=== PATIENT | male | born 1975 | race American Indian/Alaskan Native ===

== ENCOUNTER 2019-01-24 15:22 | Emergency (ER) | payer OTHER ==
--- NOTE | 2019-01-24 15:42 | Emergency Department Report ---
Blank Doc - Documentation Documentation: This is a 43-year-old male that presents with right mandibular swelling with p ain. This initial assessment/diagnostic orders/clinical plan/treatment(s) is/are subject to change based on patient's health status, clinical progression and re- assessment by fellow clinical providers in the ED. Further treatment and workup at subsequent clinical providers discretion. Patient/guardians urged not to elope from the ED as their condition may be serious if not clinically assessed a nd managed. Initial orders include: 1- Patient sent to [facility] for further evaluation and treatment 2- labs 3- CT with contrast r/o abscess
[2019-01-24 15:45] VITALS: BP 128/76
[2019-01-24 16:10] LABS: Basophils # (Auto) 0.1 K/mm3 (0.0-0.1); Basophils % (Auto) 0.7 % (0.0-1.8); Eosinophils # (Auto) 0.1 K/mm3 (0.0-0.4); Eosinophils % (Auto) 1.1 % (0.0-4.3); Hemoglobin 9.2 gm/dl (11.8-15.2); Lymphocytes # (Auto) 1.3 K/mm3 (1.2-5.4); Lymphocytes % (Auto) 14.9 % (13.4-35.0); Mean Corpuscular HGB Conc 34 % (32-34); Mean Corpuscular Volume 91 fl (84-94); Monocytes # (Auto) 0.7 K/mm3 (0.0-0.8); Monocytes % (Auto) 8.6 % (0.0-7.3); Red Blood Count 2.97 M/mm3 (3.65-5.03); Red Cell Distribution Width 15.5 % (13.2-15.2)
[2019-01-24 16:23] LABS: BUN/Creatinine Ratio 12; Blood Urea Nitrogen 12 mg/dL (9-20); Calcium 8.5 mg/dL (8.4-10.2); Hemolysis Index 9
[2019-01-24 17:14] LABS: Platelet Count 45 K/mm3 (140-440)
[2019-01-24] MEDS ORDERED: NACL 0.9% 1000 ML 1,000 ML IV ONE (19:02)
--- NOTE | 2019-01-24 19:02 | Emergency Department Report ---
- General Chief complaint: Pain General Stated complaint: RT SIDE JAW PAIN Time Seen by Provider: 01/24/19 15:41 Source: patient Mode of arrival: Ambulatory Limitations: No Limitations - History of Present Illness Initial comments: Pt is a 43 yo male who presents to the ED with c/o a right sided mandible abscess that began two days ago. He has associated subjective fever. He denies any V/D or drainage from the site. He has not taking anything. He has had abscess previously in the past where he had a I&D and was placed on antibiotics. The patient denies any PMHx, denies taking any medication on a regular basis, denies any recent medications. He states the only medication he has taken in the last month is tramadol two weeks ago that he got from "his mother." he denies any hx of anemia or low platlets. he denies any kidney problems, any rectal bleeding, GI bleeding. - Related Data Previous Rx's Medication Instructions Recorded Last Taken Type Clindamycin [Clindamycin CAP] 450 mg PO TID 7 Days #21 capsule 01/24/19 Unknown Rx Allergies Allergy/AdvReac Type Severity Reaction Status Date / Time No Known Allergies Allergy Verified 01/24/19 15:25 Abscess Boil HPI - HPI Chief Complaint: Pain General Stated Complaint: RT SIDE JAW PAIN Time Seen by Provider: 01/24/19 15:41 Home Medications: Previous Rx's Medication Instructions Recorded Last Taken Type Clindamycin [Clindamycin CAP] 450 mg PO TID 7 Days #21 capsule 01/24/19 Unknown Rx Allergies/Adverse Reactions: Allergies Allergy/AdvReac Type Severity Reaction Status Date / Time No Known Allergies Allergy Verified 01/24/19 15:25 ED Review of Systems ROS: Stated complaint: RT SIDE JAW PAIN Other details as noted in HPI Comment: All other systems reviewed and negative ED Past Medical Hx - Past Medical History Additional medical history: ABCESS. SHINGLES - Surgical History Past Surgical History?: No Additional Surgical History: I & D of abcess - Social History Smoking Status: Current Some Day Smoker Substance Use Type: None, Marijuana - Medications Home Medications: Home Medications Medication Instructions Recorded Confirmed Last Taken Type Clindamycin [Clindamycin CAP] 450 mg PO TID 7 Days #21 capsule 01/24/19 Unknown Rx ED Physical Exam - General Limitations: No Limitations General appearance: alert, in no apparent distress - Head Head exam: Present: atraumatic, normocephalic - Eye Eye exam: Present: normal appearance - ENT ENT exam: Present: normal orophraynx, mucous membranes moist, other (no dental abscess, uvula is midline) - Respiratory Respiratory exam: Present: normal lung sounds bilaterally. Absent: respiratory distress, wheezes, rales, rhonchi, stridor - Neurological Exam Neurological exam: Present: alert, oriented X3 - Psychiatric Psychiatric exam: Present: normal affect, normal mood - Skin Skin exam: Present: other (4 cm area of induration and fluctuance overlying the right mandible, no drainage currently ) ED Course Vital Signs 01/24/19 01/24/19 15:41 21:23 Temperature 99.3 F Pulse Rate 119 H 84 Respiratory 18 16 Rate Blood Pressure 128/76 O2 Sat by Pulse 98 99 Oximetry - I & D Right Jaw Type of Procedure: Simple Site: 4 cm abscess overlying the right mandible Blade Size: 11 I & D Procedure: betadine prep, sterile drapes applied, sterile dressing applied Progress: 7 cc of lidocaine with epinephrine used, site prepped with betadine and draped, copious amount of foul smelling purulent drainage, bleeding controlled, pt tolerated well with no complications ED Medical Decision Making - Lab Data Result diagrams: 01/24/19 15:57 01/24/19 15:57 Lab Results 01/24/19 01/24/19 01/24/19 Range/Units 15:57 15:57 18:49 WBC 8.6 (4.5-11.0) K/mm3 RBC 2.97 L (3.65-5.03) M/mm3 Hgb 9.2 L (11.8-15.2) gm/dl Hct 27.0 L (35.5-45.6) % MCV 91 (84-94) fl MCH 31 (28-32) pg MCHC 34 (32-34) % RDW 15.5 H (13.2-15.2) % Plt Count 45 L (140-440) K/mm3 Lymph % (Auto) 14.9 (13.4-35.0) % [place] % (Auto) 8.6 H (0.0-7.3) % Eos % (Auto) 1.1 (0.0-4.3) % Baso % (Auto) 0.7 (0.0-1.8) % Lymph # 1.3 (1.2-5.4) K/mm3 [place] # 0.7 (0.0-0.8) K/mm3 Eos # 0.1 (0.0-0.4) K/mm3 Baso # 0.1 (0.0-0.1) K/mm3 Seg Neutrophils % 74.7 H (40.0-70.0) % Seg Neutrophils # 6.5 (1.8-7.7) K/mm3 Sodium 132 L (137-145) mmol/L Potassium 4.3 (3.6-5.0) mmol/L Chloride 97.7 L (98-107) mmol/L Carbon Dioxide 24 (22-30) mmol/L Anion Gap 15 mmol/L BUN 12 (9-20) mg/dL Creatinine 1.0 (0.8-1.5) mg/dL Estimated GFR > 60 ml/min BUN/Creatinine Ratio 12 % Glucose 90 (75-100) mg/dL Lactic Acid 1.10 (0.7-2.0) mmol/L Calcium 8.5 (8.4-10.2) mg/dL Vital Signs 01/24/19 01/24/19 15:41 21:23 Temperature 99.3 F Pulse Rate 119 H 84 Respiratory 18 16 Rate Blood Pressure 128/76 O2 Sat by Pulse 98 99 Oximetry - Radiology Data Radiology results: report reviewed PROCEDURE: CT NECK W CON TECHNIQUE: Following administration of IV contrast axial helical imaging was performed through the neck with sagittal and coronal reformatted images obtained. HISTORY: right side facial swelling r/o abscess COMPARISONS: None FINDINGS: Visualization of fine detail is somewhat limited by motion artifact. There is an approximately 4.6 cm (AP) by 2.8 cm (lateral) by a 3.8 cm (craniocaudal) low attenuation collection with marginal enhancement in the appearance of internal septations in the right facial soft subcutaneous soft tissues. There is evidence of edema in the adjacent soft tissues. Evaluation for the presence or absence of inflammatory change in the deep soft tissues of the face/neck is significantly limited by motion artifact. There is no definite evidence of cervical adenopathy. The bony structures are unremarkable in appearance. There is normal enhancement of the major cervical vascular structures. The paranasal and mastoid sinuses are unremarkable. The orbital contents are unremarkable. IMPRESSION: 1. Study degraded by motion artifact. 2. Low attenuation collection with marginal enhancement in the subcutaneous soft tissues of the face on the right. In the proper clinical setting this most likely represents an abscess. However, a cystic mass cannot entirely be excluded. 3. Evaluation for extension of the inflammatory process into the deep soft tissues of the face and neck is limited by motion artifact. This document is electronically signed by Beti Zhao MD., January 24 2019 07:16:49 PM ET - Medical Decision Making Pt is a 43 yo male who presents to the ED with c/o a right sided mandible abscess that began two days ago. He has associated subjective fever. He denies any V/D or drainage from the site. He has not taking anything. He has had abscess previously in the past where he had a I&D and was placed on antibiotics. The patient denies any PMHx, denies taking any medication on a regular basis, denies any recent medications. He states the only medication he has taken in the last month is tramadol two weeks ago that he got from "his mother." he denies any hx of anemia or low platlets. he denies any kidney problems, any rectal bleeding, GI bleeding. no leukocytosis, no elevated lactic. VSS, HR improved. afebrile. CT shows 4.6 cm (AP) by 2.8 cm (lateral) by a 3.8 cm (craniocaudal) low attenuation collection with marginal enhancement in the appearance of internal septations in the right facial soft subcutaneous soft tissues. .5 cm incision made over the right mandible and copious amounts of foul smelling purulent drainage expressed, bleeding controlled. only a very small incison made due to thombocytopenia/anemia. Will place pt on clindamycin. CBC shows anemia and thrombocytopenia, no obvious source. Will have pt follow up with PCP [facility]. Will have pt see PCP or return to the ED for wound check in 2 days. Advised to take all medication as prescribed. Return to the ED for any new or worsening symptoms, discussed in detail with pt. Critical care attestation.: If time is entered above; I have spent that time in minutes in the direct care of this critically ill patient, excluding procedure time. ED Disposition Clinical Impression: Abscess, Thrombocytopenia Anemia Qualifiers: Anemia type: unspecified type Qualified Code(s): D64.9 - Anemia, unspecified Disposition: DC-01 TO HOME OR SELFCARE Is pt being admited?: No Does the pt Need Aspirin: No Condition: Stable Instructions: Abscess (ED), Anemia (ED), Thrombocytopenia (ED) Additional Instructions: Follow up with a primary care doctor [facility] due to anemia and low platelets. Will need to have your wound site rechecked in 2 days either by a primary care doctor or at the emergency room. Take all medication as prescribed. Return to the emergency room for any new or worsening symptoms as discussed. Prescriptions: Clindamycin [Clindamycin CAP] 450 mg PO TID 7 Days #21 capsule Referrals: ROSY HOOKS MD [Primary Care Provider] - [facility] Time of Disposition: 21:07 Print Language: GRENADIAN
--- NOTE | 2019-01-24 19:18 | Cat Scan Report ---
PROCEDURE: CT NECK W CON TECHNIQUE: Following administration of IV contrast axial helical imaging was performed through the n [place] with sagittal and coronal reformatted images obtained. HISTORY: right side facial swelling r/o abscess COMPARISONS: None FINDINGS: Visualization of fine detail is somewhat limited by motion artifact. There is an approximately 4.6 cm (AP) by 2.8 cm (lateral) by a 3.8 cm (craniocaudal) low attenuation collection with marginal enhancement in the appearance of internal septations in the right facial sof t subcutaneous soft tissues. There is evidence of edema in the adjacent soft tissues. Evaluation for the presence or absence of inflammatory change in the deep soft tissues of the face/ne ck is significantly limited by motion artifact. There is no definite evidence of cervical adenopathy. The bony structures are unremarkable in appearance. There is normal enhancement of the major cervical vascular structures. The paranasal and mastoid sinuses are unremarkable. The orbital contents are unremarkable. IMPRESSION: 1. Study degraded by motion artifact. 2. Low attenuation collection with marginal enhancement in the subcutaneous soft tissues of the face on the right. In the proper clinical setting this most likely represents an abscess. However, a cysti c mass cannot entirely be excluded. 3. Evaluation for extension of the inflammatory process into the deep soft tissues of the face and ne ck is limited by motion artifact. This document is electronically signed by Beti Zhao MD., January 24 2019 07:16:49 PM ET
[2019-01-24] MEDS ORDERED: XYLOCAINE 1%/ EPI 1:100,000 INFILTRATI ONE (19:50)
== END 2019-01-24 21:23 | disposition home or self-care (01) ==
LOC: ED 15:22
DX: K12.2 Cellulitis and abscess of mouth (principal); D64.9 Anemia, unspecified; D69.6 Thrombocytopenia, unspecified; F17.200 Nicotine dependence, unspecified, uncomplicated; F12.10 Cannabis abuse, uncomplicated
CPT/HCPCS: 10060; 36415; 70491; 80048; 82140; 85025; 96360; 99284; J7030; Q9967